=== PATIENT | female | born 1965 | race Caucasian/White ===

== ENCOUNTER 2017-12-25 16:25 | Observation (INO) | payer BC ==
--- NOTE | 2017-12-25 16:33 | EDPHY ---
H & P Time Seen by Provider: 12/25/17 16:33 HPI/ROS: CHIEF COMPLAINT: Severe abdominal pain HISTORY OF PRESENT ILLNESS: Patient had colonoscopy today and had polypectomy and was discharged around noon. Around 2:00 p.m. She started having diffuse abdominal pain which has gotten worse and is now severe. Does not radiate but associated with nausea and vomiting worse with movement. She thinks she might have passed a little blood rectally. No urinary symptoms or fever. No other symptoms at this time. REVIEW OF SYSTEMS: Eye: no change in vision ENT: no sore throat Cardiac: no chest pain or syncope Pulmonary: no cough or SOB Abdomen: HPI Musculoskeletal: no back pain Skin: no rash Neuro: no headache Constitutional: no fever : no urinary symptoms A comprehensive 10 point review of systems is otherwise negative aside from elements mentioned in the history of present illness. PAST MEDICAL HISTORY: Negative, postmenopausal Social history: General Appearance: Alert and conversant, cooperative. Appears moderately uncomfortable Eyes: No scleral icterus. ENT, Mouth: Normal mucous membranes. Respiratory: Normal respiratory effort, breath sounds equal, lungs are clear to auscultation. Cardiovascular: Regular rate and rhythm. Gastrointestinal: Diffuse tenderness with guarding. Decreased bowel sounds. Neurological: Alert, face symmetric, normal motor and sensory in extremities. Skin: Warm and dry, no rashes. Musculoskeletal: No peripheral edema. Psychiatric: Not agitated. Emergency Department course/MDM: Discussed with Mila prior to arrival at 1609; requesting CT. IV fentanyl 100 mcg and Zofran 4 mg, normal saline hydration for vomiting. Plan for i-STAT and CT per discussion with petroleum supply specialist, to evaluate for the possibility of perforation. Discussed with patient and and consented. 1654: I-STAT creatinine 0.8, CT ordered. 1740: CT shows localized a pneumoperitoneum in the pelvis, discussed with Dr. Dioni Mccallum from Radiology and Dr. Zaragoza her petroleum supply specialist at this time. Dr. Zaragoza will talk to the patient. Invanz 1 g IV and General surgery consultation for [facility] by Dr. Zaragoza. 1801: Seen by Lata, plan for OR and admit to him. Smoking Status: Never smoked Constitutional: Initial Vital Signs Temperature (C) 36.7 C 12/25/17 16:29 Heart Rate 100 12/25/17 16:29 Respiratory Rate 16 03/09/18 16:29 Blood Pressure 101/67 12/25/17 16:29 O2 Sat (%) 98 12/25/17 16:29 O2 Delivery Mode Room Air Allergies/Adverse Reactions: No Known Allergies Allergy (Unverified 12/25/17 16:28) Home Medications: Medication Instructions Recorded NK [No Known Home Meds] 12/25/17 Medical Decision Making - Diagnostics Imaging Results: Imaging Impressions Abdomen CT 12/25/17 16:54 Impression: 1. Perforated sigmoid colon, with localized mesenteric pneumoperitoneum in the left side of the pelvis adjacent to the proximal sigmoid colon as well as fluid in the right upper quadrant anterior to the liver, bilateral paracolic gutters, and posterior cul-de-sac, consistent with hemorrhage. 2. No bowel obstruction. Findings and recommendations given to Dr. Zaragoza at 1735 hours, on December 25, 2017. Final report concurs with initial preliminary interpretation. Findings and recommendations discussed with Emergency Department physician, Farhad Frausto M.D., at 1740 hours, on December 25, 2017. Final report concurs with initial preliminary interpretation. A test result has been communicated to a licensed care provider and documented in the [email or web address] Critical Result system on 12/25/2017 17:44, Message ID [id number]. Imaging: Discussed imaging studies w/ machine scallop cutter Radiologist Differential Diagnosis: Differential for abdominal pain after colonoscopy considered including but not limited to: Perforation, lower GI bleed, postoperative pain, medication reaction, bowel obstruction - Data Points Laboratory Results: Laboratory Results 12/25/17 16:40 12/25/17 16:40 12/25/17 12/25/17 12/25/17 16:47 16:40 16:40 WBC 8.80 10^3/uL 10^3/uL (3.80-9.50) RBC 4.44 10^6/uL 10^6/uL (4.18-5.33) Hgb 14.3 g/dL g/dL (12.6-16.3) POC Hgb 14.3 gm/dL gm/dL (12.6-16.3) Hct 40.9 % % (38.0-47.0) POC Hct 42 % % (38-47) MCV 92.1 fL fL (81.5-99.8) MCH 32.2 pg pg (27.9-34.1) MCHC 35.0 g/dL g/dL (32.4-36.7) RDW 12.8 % % (11.5-15.2) Plt Count 277 10^3/uL 10^3/uL (150-400) MPV 9.7 fL fL (8.7-11.7) Neut % (Auto) 76.5 % H % (39.3-74.2) Lymph % (Auto) 17.6 % % (15.0-45.0) Hawkins % (Auto) 5.2 % % (4.5-13.0) Eos % (Auto) 0.2 % L % (0.6-7.6) Baso % (Auto) 0.2 % L % (0.3-1.7) Nucleat RBC Rel Count 0.0 % % (0.0-0.2) Absolute Neuts (auto) 6.72 10^3/uL H 10^3/uL (1.70-6.50) Absolute Lymphs (auto) 1.55 10^3/uL 10^3/uL (1.00-3.00) Absolute Monos (auto) 0.46 10^3/uL 10^3/uL (0.30-0.80) Absolute Eos (auto) 0.02 10^3/uL L 10^3/uL (0.03-0.40) Absolute Basos (auto) 0.02 10^3/uL 10^3/uL (0.02-0.10) Absolute Nucleated RBC 0.00 10^3/uL 10^3/uL (0-0.01) Immature Gran % 0.3 % % (0.0-1.1) Immature Gran # 0.03 10^3/uL 10^3/uL (0.00-0.10) POC Sodium 143 mEq/L mEq/L (135-145) Sodium 143 mEq/L mEq/L (135-145) POC Potassium 3.4 mEq/L mEq/L (3.3-5.0) Potassium 3.7 mEq/L mEq/L (3.5-5.2) POC Chloride 102 mEq/L mEq/L (97-110) Chloride 101 mEq/L mEq/L (97-110) Carbon Dioxide 30 mEq/l mEq/l (22-31) Anion Gap 12 mEq/L mEq/L (8-16) POC BUN 9 mg/dL mg/dL (7-23) BUN 11 mg/dL mg/dL (7-23) Creatinine 0.8 mg/dL mg/dL (0.6-1.0) POC Creatinine 0.8 mg/dL mg/dL (0.6-1.0) Estimated GFR > 60 Glucose 98 mg/dL mg/dL (70-100) POC Glucose 108 mg/dL H mg/dL (70-100) Calcium 9.5 mg/dL mg/dL (8.5-10.4) Medications Given: Discontinued Medications Bupivacaine HCl (Sensorcaine 0.5% Vial) Confirm Administered Dose 30 ml .ROUTE .STK-MED ONE Stop: 12/25/17 18:48 Last Admin: 12/25/17 19:47 Dose: 17 ml Ertapenem (Invanz) 1 gm IVP EDNOW ONE PRN Reason: Protocol Stop: 12/25/17 17:41 Last Admin: 12/25/17 17:54 Dose: 1 gm Fentanyl (Sublimaze) 100 mcg IVP EDNOW ONE Stop: 12/25/17 16:40 Last Admin: 12/25/17 16:43 Dose: 100 mcg Hydromorphone HCl (Dilaudid) 0.5 mg IVP EDNOW ONE Stop: 12/25/17 17:43 Last Admin: 12/25/17 17:48 Dose: 0.5 mg Sodium Chloride (Ns) 1,000 mls @ 0 mls/hr IV EDNOW ONE; Wide Open PRN Reason: Protocol Stop: 12/25/17 16:35 Last Admin: 12/25/17 16:42 Dose: 1,000 mls Sodium Chloride (Ns) 1,000 mls @ 0 mls/hr IV EDNOW ONE; Wide Open PRN Reason: Protocol Stop: 12/25/17 16:40 Last Admin: 12/25/17 17:55 Dose: 1,000 mls Midazolam HCl (Versed) 2 mg IVP ONCALL ONE Stop: 12/25/17 18:56 Last Admin: 12/25/17 19:02 Dose: 1 mg Ondansetron HCl (Zofran) 4 mg IVP EDNOW ONE Stop: 12/25/17 16:35 Last Admin: 12/25/17 16:42 Dose: 4 mg Point of Care Test Results: 12/25/17 16:47 POC Sodium 143 POC Potassium 3.4 POC Chloride 102 POC BUN 9 POC Creatinine 0.8 POC Glucose 108 H Departure - Departure Disposition: To OP Cath/Surgery Clinical Impression: Perforation of colon Condition: Good
[2017-12-25] MEDS ORDERED: ONDANSETRON 4 MG/2 ML VIAL IVP ONE (16:34)
[2017-12-25] MEDS ORDERED: NS 1,000 ML IV ONE ×2 (16:34→16:39)
[2017-12-25] MEDS ORDERED: fentaNYL 100 MCG/2 ML INJ ONE ×2 (16:39→19:01)
[2017-12-25] MEDS ORDERED: fentaNYL 100 MCG/2 ML INJ IVP ONE (16:39)
[2017-12-25 16:52] LABS: PLATELET COUNT 277 10^3/uL (150-400)
[2017-12-25] MEDS ORDERED: IOPAMIDOL (ISOVUE-300) 100 ML BTL ONE (17:16)
[2017-12-25] MEDS ORDERED: ERTAPENEM 1 GM VIAL IVP ONE (17:40)
[2017-12-25] MEDS ORDERED: HYDROmorphONE/DILAUDID 2 MG/ML INJ IVP ONE (17:42)
--- NOTE | 2017-12-25 18:20 | PDGENHP ---
History & Physical Chief Complaint: 52 y/o female with abdominal pain after colonoscopy History of Present Illness: Underwent colonoscopy this AM with resection of polyp at 40 cm; initially did well but developed abd pain and distention with N/ V. Pertinent Past, Social, Family History: PMHx: negative. PSHx: hernia repair. Meds: Prozac. NKDA Relevant Physical Exam: Alert, NAD. RRR, CTA B. Abd distended, mod diffuse TTP. +/- rebound, + guarding Cardiorespiratory Assessment: As above. Options d/w patient and at length; plan diagnostic laparoscopy and possible repair vs colectomy/colostomy. Risks/benefits explained in detail, questions answered.
[2017-12-25] MEDS ORDERED: BUPIVACAINE 0.5% 10 ML SDV ONE (18:47)
[2017-12-25] MEDS ORDERED: MIDAZOLAM 2 MG/2 ML VIAL IVP ONE (18:55)
--- NOTE | 2017-12-25 18:55 | PDANEPAE ---
ANE History of Present Illness Bowel perforation s/p colonoscopy ANE Past Medical History - Pulmonary History Hx Oxygen in Use at Home: No Hx Sleep Apnea: No - Endocrine History Hx Diabetes: No ANE Review of Systems Review of Systems: ANE Patient History - Allergies Allergies/Adverse Reactions: No Known Allergies Allergy (Unverified 12/25/17 16:28) - Home Medications Home Medications: NK [No Known Home Meds] 12/25/17 [Last Taken Unknown] - NPO status NPO Since - Liquids (Date): 12/25/17 NPO Since - Liquids (Time): 13:00 NPO Since - Solids (Date): 12/25/17 NPO Since - Solids (Time): 13:00 - Anes Hx Anes Hx: no prior problems - Smoking Hx Smoking Status: Never smoked ANE Labs/Vital Signs - Labs Result Diagrams: 12/25/17 16:40 12/25/17 16:40 - Vital Signs Blood Pressure: 103/63 Heart Rate: 84 Respiratory Rate: 17 O2 Sat (%): 100 Height: 165.1 cm Weight: 56.699 kg ANE Physical Exam - Airway Neck exam: FROM Mallampati Score: Class 2 Mouth exam: normal dental/mouth exam - Pulmonary Pulmonary: no respiratory distress - Cardiovascular Cardiovascular: regular rate and rhythym - ASA Status ASA Status: II, E ANE Anesthesia Plan Anesthesia Plan: general endotracheal anesthesia (with RSI)
[2017-12-25] MEDS ORDERED: MIDAZOLAM 2 MG/2 ML VIAL ONE (18:56)
[2017-12-25] MEDS ORDERED: ROCURONIUM 50 MG/5 ML VIAL ONE (19:00)
[2017-12-25] MEDS ORDERED: PROPOFOL 200 MG/20 ML VIAL ONE (19:01)
[2017-12-25] MEDS ORDERED: LIDOCAINE 2% 5 ML SDV ONE (19:01)
[2017-12-25] MEDS ORDERED: PHENYLEPHRINE HCL 100 MCG/ML SYR ONE (19:15)
[2017-12-25] MEDS ORDERED: DEXAMETHASONE 4 MG/ML VIAL ONE (19:17)
[2017-12-25] MEDS ORDERED: ONDANSETRON 4 MG/2 ML VIAL ONE (19:33)
[2017-12-25] MEDS ORDERED: SUGAMMADEX SODIUM 200 MG/2 ML VIAL IVP ONE (19:52)
[2017-12-25] MEDS ORDERED: NALOXONE HCL 0.4 MG/ML INJ IVP PRN ×2 (19:53→20:26)
[2017-12-25] MEDS ORDERED: ONDANSETRON 4 MG/2 ML VIAL IVP PRN ×2 (19:53→20:13)
[2017-12-25] MEDS ORDERED: PROMETHAZINE HCL 25 MG/ML INJ IVP PRN (19:53)
[2017-12-25] MEDS ORDERED: HYDROmorphONE/DILAUDID 1 MG/ML INJ IVP PRN (20:13)
--- NOTE | 2017-12-25 20:15 | POSTOPPROG ---
Post Op Note Date of Operation: 12/25/17 Surgeon: Guy Guido Anesthesiologist: Dr. Magana Anesthesia: GET(General Endotracheal) Pre-op Diagnosis: Colon perforation Post-op Diagnosis: Same Procedure: Diagnostic laparoscopy, colon repair Findings: Small perforation, minimal contamination Inf/Abcess present in the surg proc area at time of surgery?: Yes Depth: Organ Space EBL: Minimal
[2017-12-25] MEDS ORDERED: fentaNYL 100 MCG/2 ML INJ IVP PRN (20:26)
--- NOTE | 2017-12-25 20:27 | POSTANESTH ---
Post Anesthetic Evaluation Cardiovascular Status: Normal, Stable Respiratory Status: Normal, Stable Level of Consciousness/Mental Status: Can Participate in Eval Pain Control: Adequate, Prn Tx Ordered Nausea/Vomiting Control: Adequate, Prn Tx Ordered Complications Possibly Related to Anesthesia: None Noted
[2017-12-25] MEDS ORDERED: LR 1,000 ML IV SCH (20:30)
[2017-12-26] MEDS: HYDROmorphONE/DILAUDID 2 MG/ML INJ IVP PRN ×2 (00:36→08:55)
[2017-12-26] MEDS ORDERED: ERTAPENEM 1 GM VIAL IV SCH (09:00)
[2017-12-26] MEDS ORDERED: ACETAMINOPHEN 325 MG TAB PO PRN (09:43)
[2017-12-26] MEDS ORDERED: oxyCODONE IR 5 MG TAB PO PRN (09:45)
--- NOTE | 2017-12-26 09:47 | SOAPPROG ---
SOAP Progress Note Assessment/Plan: Assessment: S/P lap colonic repair, improving. Advance diet. Cont TRISHA drain, start oral pain meds. Plan: 12/26/17 09:46 Subjective: Patient feels better, pain improved, no N/V. Ambulating, voiding. Objective: Vital Signs Temp Pulse Resp BP Pulse Ox 37.4 C 80 14 88/52 L 100 12/26/17 07:50 12/26/17 07:50 12/26/17 07:50 12/26/17 07:50 12/26/17 07:50 Laboratory Results 12/26/17 04:14 12/26/17 04:14 12/25/17 12/26/17 12/27/17 05:59 05:59 06:59 Intake Total 2720 Output Total 590 230 Balance 2130 -230 Alert, NAD RRR Abd soft, mild inc TTP Inc C/D/I TRISHA seropurulent ICD10 Worksheet Patient Problems: Problems Problem Status Onset Perforation of colon Acute
--- NOTE | 2017-12-26 10:41 | GOP ---
[f rep st] OPERATIVE REPORT DATE OF OPERATION: 12/25/2017 SURGEON: Theodore Guido MD ANESTHESIA: General endotracheal anesthesia. ANESTHESIOLOGIST: Brandon Magana MD PREOPERATIVE DIAGNOSIS: Perforated sigmoid colon. POSTOPERATIVE DIAGNOSIS: Perforated sigmoid colon. PROCEDURE PERFORMED: FINDINGS: The patient had a 2 mm perforation in the medial aspect of sigmoid colon. There was minim al contamination and good viability of the bowel. ESTIMATED BLOOD LOSS: 20 mL. INDICATIONS: A 52-year-old female, status post colonoscopy earlier on the same day. The patient pre sented later to the emergency department with abdominal pain, nausea, vomiting, bloating. CT scan de monstrated free air and free fluid in the pelvis. Risks and benefits of the procedure discussed with the patient and family, their questions were answered, they wish to proceed. DESCRIPTION OF PROCEDURE: Patient in supine position. After induction of adequate general endotrach eal anesthesia, the patient is prepped and draped in standard surgical fashion. 0.5% Marcaine was in jected throughout the infraumbilical area and a 5 mm incision was made. The abdominal wall was eleva sana and a Veress needle was inserted. After noting proper pressures, the abdomen was insufflated wit h carbon dioxide. A 5 mm trocar was passed and the camera followed. There was no apparent damage fr om trocar placement. Two more ports were placed, both 5 mm ports in the lower abdomen. These were p laced under direct vision after injecting 0.5% Marcaine for local anesthesia. The abdomen was inspected. Air was noted to be infiltrating the pericolonic fat at the sigmoid colon . There was a small amount of seropurulent fluid in the pelvis. No formal abscess was identified. The colon itself appeared quite viable with 1 small hemorrhagic area in the medial aspect of the mid sigmoid colon. Perforation was identified in this area, appeared to be 2 mm with viable edges. Due to the minimal contamination and excellent viability of colon, decision was made to perform a primary repair. This was done using 2-0 silk in an interrupted fashion. Once repair was completed and insp ected, a patch of epiploic appendage was also placed over the repair. This was secured using 2-0 michael k in an interrupted fashion. The remainder of colon inspected. No other lesions were identified. The abdomen was then thoroughly irrigated and aspirated. Once the effluent returned clear, the abdom en was reinspected. No other lesions were identified and good hemostasis was noted. A 19 round TRISHA d rain was placed to the inferior incision into the pelvic cul-de-sac. It was secured using 3-0 nylon in interrupted fashion. The ports were then withdrawn under direct vision. The pneumoperitoneum was allowed to escape. The remaining port sites were closed using 4-0 Monocryl in a subcuticular stitch . Wounds were sterilely dressed, the patient was extubated and taken to PACU in stable condition. PROCEDURE: Laparoscopic repair of sigmoid colon perforation. COMPLICATIONS: None. DRAINS: Include 1 TRISHA drain in the pelvic cul-de-sac. /[id number]/MODL
[2017-12-26 11:11] VITALS: BP 87/51; PULSE 74; RESP 16; TEMP 99.3; O2SAT 94
== END 2017-12-26 17:06 | disposition home or self-care (01) ==
LOC: INTOOBSV 18:01 → F3E 21:09
PROVIDERS: ADMIT Surgery; ATTEND Surgery
PROC: 0DQN4ZZ Repair Sigmoid Colon, Percutaneous Endoscopic Approach (ICD-10-PCS; principal; 2017-12-25 18:45)
DX: S36.533A Laceration of sigmoid colon, initial encounter (principal); Y65.8 Other specified misadventures during surgical and medical care; E86.9 Volume depletion, unspecified; Z86.010 Personal history of colon polyps; Z78.0 Asymptomatic menopausal state
CPT/HCPCS: 44238; 74177; 96361; 96374; 96375; 99285; G0378; 82947-QW; J1100; J1170; J1335; J2250; J2370; J2405; J2704; J3010; Q9967